=== PATIENT | female | born 1940 | race Two or more races ===

== ENCOUNTER 2023-11-24 06:45 | Inpatient (IN) | payer MEDICARE, OTHER ==
[~2023-11-24] VITALS: Ht 162.6 cm; Wt 58.1 kg
[2023-11-24] MEDS: IV NS 0.9% 500 ML BAG IV ONE (07:12)
[2023-11-24 07:44] LABS: BASOPHILS % (AUTO) 0.3 % (0.0-2.0); EOSINOPHILS # (AUTO) 0.1 K/uL (0.0-0.7); EOSINOPHILS % (AUTO) 0.4 % (0.0-6.0); HEMATOCRIT 53 % (33-45); HEMOGLOBIN 17.6 g/dL (11.5-14.8); LYMPHOCYTES # (AUTO) 1.5 K/uL (0.8-4.8); LYMPHOCYTES % (AUTO) 10.3 % (20.0-44.0); MEAN CORPUSCULAR HEMOGLOBIN 32 PG (26.0-33.0); MEAN CORPUSCULAR HGB CONC 33 g/dl (31.0-36.0); MEAN CORPUSCULAR VOLUME 97 fL (82-100); MONOCYTES # (AUTO) 1.5 K/uL (0.1-1.30); MONOCYTES % (AUTO) 9.7 % (2.0-12.0); NEUTROPHILS # (AUTO) 11.9 K/uL (1.8-8.9); NEUTROPHILS % (AUTO) 79.3 % (43.0-81.0); PLATELET COUNT (AUTO) 159 K/uL (150-450); RED BLOOD CELL COUNT(AUTO) 5.48 MIL/uL (4.0-5.2); RED CELL DISTRIBUTION WIDTH 18.7 % (11.5-15.0)
[2023-11-24 07:57] LABS: ALANINE AMINOTRANSFERASE 79 U/L (12-78); ALBUMIN 1.9 g/dL (3.4-5.0); ALKALINE PHOSPHATASE 331 U/L (46-116); ASPARTATE AMINOTRANSFERASE 98 U/L (15-37); BILIRUBIN,DIRECT 3.4 mg/dL (0.0-0.2); BILIRUBIN,TOTAL 5.9 mg/dL (0.2-1.0); CALCIUM, SERUM 9.9 mg/dL (8.5-10.1); CARBON DIOXIDE 21 mmol/L (21-32); CHLORIDE 98 mmol/L (98-107); CREATININE 1.4 mg/dL (0.6-1.3); GLUCOSE 100 mg/dL (74-106); LIPASE 142 U/L (16-77); SODIUM SERUM 128 mmol/L (136-145); UREA NITROGEN, BLOOD 35 mg/dL (7-18)
[2023-11-24 07:59] LABS: POTASSIUM 6.4 mmol/L (3.5-5.1)
[2023-11-24] MEDS: SODIUM BICARBONATE SYR 100 MEQ in IV D5W 1,000 ML IV ONE (08:30)
[2023-11-24] MEDS ORDERED: CALCIUM CHLORIDE 1,000 MG/10 ML DISP.SYRIN ONE (09:01)
[2023-11-24] MEDS ORDERED: DEXTROSE 50%-WATER 50 ML DISP.SYRIN ONE (09:01)
[2023-11-24] MEDS ORDERED: FUROSEMIDE 40 MG/4 ML VIAL ONE (09:01)
[2023-11-24] MEDS ORDERED: INSULIN REGULAR, HUMAN 100 UNIT/ML 10 ML VIAL ONE (09:02)
[2023-11-24] MEDS: CALCIUM CHLORIDE 1,000 MG/10 ML DISP.SYRIN IV ONE (09:03)
[2023-11-24] MEDS: DEXTROSE 50%-WATER 50 ML DISP.SYRIN IV ONE (09:04)
[2023-11-24] MEDS: INSULIN REGULAR, HUMAN 100 UNIT/ML 10 ML VIAL IV ONE (09:06)
[2023-11-24] MEDS: FUROSEMIDE 40 MG/4 ML VIAL IV ONE (09:08)
[2023-11-24] MEDS: ALBUTEROL FS 2.5 MG/3 ML VIAL.NEB NEB ONE (09:29)
[2023-11-24] MEDS ORDERED: FAMO40TA70 PO (09:35)
[2023-11-24] MEDS ORDERED: CLON0.5T PO (09:35)
[2023-11-24] MEDS ORDERED: ALBUTEROL FS 2.5 MG/3 ML VIAL.NEB ONE (09:35)
[2023-11-24] MEDS ORDERED: PROC5TAB59 PO (09:35)
[2023-11-24] MEDS ORDERED: HYDR-4303 PO (09:35)
[2023-11-24 09:42] VITALS: O2SAT 98
[2023-11-24 10:27] VITALS: O2SAT 99
[2023-11-24 11:02] LABS: APPEARANCE,URINE CLEAR (CLEAR); BILIRUBIN,URINE 1+ (NEGATIVE); BLOOD, URINE TRACE-INTA Ery/uL (NEGATIVE); COLOR,URINE YELLOW (YELLOW); KETONES,URINE NEGATIVE (NEGATIVE); LEUKOCYTE ESTERASE ,URINE NEGATIVE (NEGATIVE); NITRITE, URINE POSITIVE (NEGATIVE); PH,URINE 5.5 (5.0-8.0); PROTEIN,URINE NEGATIVE (NEGATIVE); UGLUCOSE NEGATIVE (NEGATIVE)
[2023-11-24 11:08] LABS: CREATININE, URINE 130.2 MG/DL (30.0-125.0); URINE TOTAL PROTEIN 15.5 mg/dL (0-11.9)
[2023-11-24 11:11] LABS: URINE SODIUM, RANDOM < 5 mmol/l (40-220)
[2023-11-24 11:39] LABS: RBC,URINE 0-2 /HPF (0-2)
[2023-11-24 11:40] LABS: ADD URINE CULTURE YES; BACTERIA,URINE 1+ /HPF (None Seen); SQUAMOUS EPITHELIAL CELL,UR Few /HPF (None Seen)
[2023-11-24] MEDS: CEFTRIAXONE 1 G in IV D5W 50 ML IV STA (11:43)
[2023-11-24 12:09] LABS: EOSINOPHIL,URINE None Seen
[2023-11-24] MEDS ORDERED: CEFTRIAXONE 1GM BAG (ER ONLY) 50 ML IV ONE (12:55)
[2023-11-24] MEDS ORDERED: ACETAMINOPHEN 325 MG TABLET PO PRN (13:00)
[2023-11-24] MEDS ORDERED: Z GUARD REMEDY 4 OZ OINT TP PRN (13:00)
[2023-11-24] MEDS ORDERED: IV NS 0.9% 1,000 ML IV PRN (13:00)
[2023-11-24] MEDS ORDERED: MORPHINE SULFATE INJ 2 MG/ML DISP.SYRIN IV PRN (13:00)
[2023-11-24 13:18] LABS: CALCIUM, SERUM 10.7 mg/dL (8.5-10.1); CARBON DIOXIDE 14 mmol/L (21-32); CHLORIDE 100 mmol/L (98-107); CREATININE 1.4 mg/dL (0.6-1.3); GLUCOSE 129 mg/dL (74-106); SODIUM SERUM 130 mmol/L (136-145); UREA NITROGEN, BLOOD 36 mg/dL (7-18)
[2023-11-24 14:00] VITALS: BP 102/75; TEMP 98.4; O2SAT 99
[2023-11-24] MEDS: CEFEPIME 1 GM in IV D5W 50 ML IV SCH (15:13)
[2023-11-24] MEDS: Sodium Bicarbonate 150 MEQ in IV D5W 1,000 ML IV SCH (15:24)
[2023-11-24 16:00] VITALS: BP 104/74; TEMP 97.4; O2SAT 97
[2023-11-24 20:00] VITALS: BP 121/75; TEMP 97.5; O2SAT 97
[2023-11-24] MEDS: clonazePAM 0.5 MG TABLET PO PRN (20:41)
[2023-11-24] MEDS: ONDANSETRON HCL/PF 4 MG/2 ML VIAL IVP PRN (20:42)
[2023-11-24 20:57] LABS: INR 1.31 (0.91-1.10); PROTHROMBIN TIME 13.6 SECS (9.2-11.1)
[2023-11-24 21:04] LABS: D-DIMER 16.52 mg/L(FEU (0.17-0.50)
[2023-11-25] VITALS: BP 106/61; TEMP 97.7; O2SAT 96
[2023-11-25 05:01] VITALS: BP 106/52; TEMP 97.9; O2SAT 95
[2023-11-25 07:00] VITALS: BP 86/54; TEMP 97.7; O2SAT 100
[2023-11-25 07:51] LABS: BASOPHILS % (AUTO) 0.1 % (0.0-2.0); EOSINOPHILS # (AUTO) 0.3 K/uL (0.0-0.7); HEMATOCRIT 51 % (33-45); HEMOGLOBIN 17.4 g/dL (11.5-14.8); LYMPHOCYTES # (AUTO) 1.1 K/uL (0.8-4.8); LYMPHOCYTES % (AUTO) 7.6 % (20.0-44.0); MEAN CORPUSCULAR HEMOGLOBIN 33 PG (26.0-33.0); MEAN CORPUSCULAR HGB CONC 34 g/dl (31.0-36.0); MEAN CORPUSCULAR VOLUME 96 fL (82-100); MONOCYTES % (AUTO) 7.3 % (2.0-12.0); NEUTROPHILS # (AUTO) 11.7 K/uL (1.8-8.9); PLATELET COUNT (AUTO) 123 K/uL (150-450); RED BLOOD CELL COUNT(AUTO) 5.29 MIL/uL (4.0-5.2); RED CELL DISTRIBUTION WIDTH 18.5 % (11.5-15.0); WHITE BLOOD COUNT (AUTO) 14.1 K/uL (4.3-11.0)
[2023-11-25 08:06] LABS: INR 1.33 (0.91-1.10); PARTIAL THROMBOPLASTIN TIME 30.8 SEC (24.3-34.3); PROTHROMBIN TIME 13.8 SECS (9.2-11.1)
[2023-11-25 08:24] LABS: D-DIMER 18.26 mg/L(FEU (0.17-0.50)
[2023-11-25 08:42] LABS: ALBUMIN 1.7 g/dL (3.4-5.0); BILIRUBIN,TOTAL 5.9 mg/dL (0.2-1.0); CALCIUM, SERUM 10.3 mg/dL (8.5-10.1); CREATININE 1.3 mg/dL (0.6-1.3); MAGNESIUM 2.6 mg/dL (1.8-2.4); PHOSPHORUS 3.3 mg/dL (2.5-4.9); POTASSIUM 4.9 mmol/L (3.5-5.1); TOTAL PROTEIN, SERUM 5.8 g/dL (6.4-8.2)
[2023-11-25] MEDS: FAMOTIDINE (20 MG) 20 MG TABLET PO SCH (08:56)
[2023-11-25 12:00] VITALS: BP_SYST 104; BP_SYST 86; BP_DIAS 54; BP_DIAS 70; TEMP 97.6; TEMP 97.7; O2SAT 100
[2023-11-25] MEDS: Sodium Bicarbonate 150 MEQ in IV D5W 1,000 ML IV SCH (13:34)
[2023-11-25 15:11] LABS: RHEUMATOID FACTOR SCREEN POSITIVE (NEGATIVE)
[2023-11-25] MEDS: HYDROCODONE/APAP 5/325MG TABLET PO PRN (15:11)
[2023-11-25 15:31] LABS: THYROID STIMULATING HORMONE 0.951 uIU/mL (0.358-3.74); URIC ACID 8.9 mg/dL (2.6-7.2)
[2023-11-25 16:05] VITALS: BP 98/64; TEMP 97.6; O2SAT 94
[2023-11-25] MEDS: ALLOPURINOL 100 MG TABLET PO SCH (16:31)
[2023-11-25] MEDS: CALCITONIN,SALMON,SYNTHETIC 3.7 ML SPRAY.PUMP NS SCH (16:32)
[2023-11-25 16:56] LABS: PROTEIN, BODY FLUID 0.7 G/DL
[2023-11-25 19:04] LABS: APPEARANCE,SPUN,BODY FLUID CLEAR (CLEAR)
[2023-11-25 19:05] LABS: MACROPHAGES, BODY FLUID 50; POLYNUCLEAR, BODY FLUID 33 % (0-25); WBC, BODY FLUID 251 /cu. mm. (0-200)
[2023-11-25 20:00] VITALS: BP 100/66; TEMP 97.5; O2SAT 95
[2023-11-26] VITALS: BP 112/79; TEMP 97.5; O2SAT 96
[2023-11-26 05:00] VITALS: BP 106/75; TEMP 98.1; O2SAT 96
[2023-11-26 05:48] LABS: BASOPHILS % (AUTO) 0.3 % (0.0-2.0); EOSINOPHILS # (AUTO) 0.2 K/uL (0.0-0.7); EOSINOPHILS % (AUTO) 1.5 % (0.0-6.0); HEMATOCRIT 48 % (33-45); HEMOGLOBIN 16.3 g/dL (11.5-14.8); LYMPHOCYTES # (AUTO) 1.4 K/uL (0.8-4.8); LYMPHOCYTES % (AUTO) 9.8 % (20.0-44.0); MEAN CORPUSCULAR HEMOGLOBIN 32 PG (26.0-33.0); MEAN CORPUSCULAR HGB CONC 34 g/dl (31.0-36.0); MEAN CORPUSCULAR VOLUME 96 fL (82-100); MONOCYTES # (AUTO) 1.2 K/uL (0.1-1.30); MONOCYTES % (AUTO) 8.6 % (2.0-12.0); NEUTROPHILS # (AUTO) 11.5 K/uL (1.8-8.9); NEUTROPHILS % (AUTO) 79.8 % (43.0-81.0); RED BLOOD CELL COUNT(AUTO) 5.01 MIL/uL (4.0-5.2); RED CELL DISTRIBUTION WIDTH 18.7 % (11.5-15.0); WHITE BLOOD COUNT (AUTO) 14.4 K/uL (4.3-11.0)
[2023-11-26 05:50] LABS: PLATELET COUNT (AUTO) 92 K/uL (150-450)
[2023-11-26 06:06] LABS: CALCIUM, SERUM 9.8 mg/dL (8.5-10.1); CARBON DIOXIDE 28 mmol/L (21-32); CHLORIDE 95 mmol/L (98-107); CREATININE 1.5 mg/dL (0.6-1.3); GLUCOSE 123 mg/dL (74-106); POTASSIUM 4.8 mmol/L (3.5-5.1); SODIUM SERUM 128 mmol/L (136-145); UREA NITROGEN, BLOOD 39 mg/dL (7-18)
[2023-11-26 06:14] LABS: INR 1.45 (0.91-1.10); PARTIAL THROMBOPLASTIN TIME 33.5 SEC (24.3-34.3)
[2023-11-26 06:16] LABS: D-DIMER 23.38 mg/L(FEU (0.17-0.50)
[2023-11-26 07:00] VITALS: BP 98/66; TEMP 97.5; O2SAT 94
[2023-11-26 08:10] LABS: PTH, INTACT 18 pg/mL (15-65)
[2023-11-26 08:10] LABS: VIT D, 25-HYDROXY 13.1 ng/mL (30.0-100.0)
[2023-11-26 08:10] LABS: *ANA ANTI-CENTROMERE B AB <0.2 AI (0.0-0.9); *ANA ANTI-DNA(DS) AB, QN <1 IU/mL (0-9); *ANA ANTI-JO-1 <0.2 AI (0.0-0.9); *ANA ANTICHROMATIN ANTIBODY <0.2 AI (0.0-0.9); *ANA RNP ANTIBODIES <0.2 AI (0.0-0.9); *ANA SJOGREN'S ANTI-SS-A <0.2 AI (0.0-0.9); *ANA SJOGREN'S ANTI-SS-B <0.2 AI (0.0-0.9); *ANAANTI-SCLERODERMA-70 AB <0.2 AI (0.0-0.9); *ANASMITH AB <0.2 AI (0.0-0.9); FOLIC ACID 6.4 ng/mL (>3.0); HEPATITIS B SURFACE AB Non Reactive (.); IMMUNOGLOBULIN A, SERUM 559 mg/dL (64-422); IMMUNOGLOBULIN G, SERUM 1246 mg/dL (586-1602); IMMUNOGLOBULIN M, SERUM 170 mg/dL (26-217)
[2023-11-26 11:10] LABS: *SPE A/G RATIO 0.6 (0.7-1.7); *SPE ALBUMIN 1.9 g/dL (2.9-4.4); *SPE ALPHA-1-GLOBULIN 0.3 g/dL (0.0-0.4); *SPE ALPHA-2-GLOBULIN 0.7 g/dL (0.4-1.0); *SPE BETA GLOBULIN 0.9 g/dL (0.7-1.3); *SPE GLOBULIN, TOTAL 3.3 g/dL (2.2-3.9); *SPE M-SPIKE Not Observed g/dL (Not Observed); *SPE PROTEIN TOTAL 5.2 g/dL (6.0-8.5); *SPEGAMMA GLOBULIN 1.4 g/dL (0.4-1.8)
[2023-11-26 11:50] LABS: ANISOCYTOSIS 1+; BAND % (MANUAL) 1 % (0.0-5.0); BASOPHILS % (MANUAL) 0 % (0.0-2.0); EOSINOPHILS % (MANUAL) 3 % (0-4); LYMPHOCYTES % (MANUAL) 8 % (16-48); MONOCYTES % (MANUAL) 7 % (0-11.0); NEUTROPHILS % (MANUAL) 81 (42-76); OVALOCYTES 1+; PLATELET ESTIMATE DECREASED; TEAR DROP CELLS 1+
[2023-11-26 16:00] VITALS: BP 92/62; TEMP 97.6; O2SAT 96
[2023-11-26] MEDS: MAG HYDROX/AL HYDROX/SIMETH 30 ML UDC PO PRN (16:09)
[2023-11-26] MEDS: FLUCONAZOLE (100 MG) 100 MG TABLET PO SCH (18:23)
[2023-11-26] MEDS: NYSTATIN (PYXIS) 500,000 UNIT/5 ML ORAL.SUSP PO SCH (18:23)
[2023-11-26] MEDS: LIDOCAINE VISCOUS 2% UD 15 ML UDC MM SCH (18:31)
[2023-11-26 20:00] VITALS: BP 118/84; TEMP 98; O2SAT 95
[2023-11-26] MEDS: CEFEPIME 1 GM in IV D5W 50 ML IV SCH (20:15)
[2023-11-27] VITALS: BP 109/68; TEMP 98.2; O2SAT 95
[2023-11-27 04:00] VITALS: BP 107/71; TEMP 98.1; O2SAT 95
[2023-11-27 06:38] LABS: BASOPHILS # (AUTO) 0.1 K/uL (0.0-0.2); BASOPHILS % (AUTO) 0.4 % (0.0-2.0); EOSINOPHILS # (AUTO) 0.2 K/uL (0.0-0.7); EOSINOPHILS % (AUTO) 1.2 % (0.0-6.0); HEMATOCRIT 51 % (33-45); HEMOGLOBIN 16.9 g/dL (11.5-14.8); LYMPHOCYTES # (AUTO) 1.8 K/uL (0.8-4.8); LYMPHOCYTES % (AUTO) 11.9 % (20.0-44.0); MEAN CORPUSCULAR HEMOGLOBIN 32 PG (26.0-33.0); MEAN CORPUSCULAR HGB CONC 33 g/dl (31.0-36.0); MEAN CORPUSCULAR VOLUME 96 fL (82-100); MONOCYTES # (AUTO) 1.3 K/uL (0.1-1.30); MONOCYTES % (AUTO) 8.9 % (2.0-12.0); NEUTROPHILS # (AUTO) 11.7 K/uL (1.8-8.9); NEUTROPHILS % (AUTO) 77.6 % (43.0-81.0); PLATELET COUNT (AUTO) 83 K/uL (150-450); RED BLOOD CELL COUNT(AUTO) 5.26 MIL/uL (4.0-5.2); RED CELL DISTRIBUTION WIDTH 18.7 % (11.5-15.0)
[2023-11-27 06:55] LABS: CALCIUM, SERUM 9.7 mg/dL (8.5-10.1); CARBON DIOXIDE 26 mmol/L (21-32); CHLORIDE 92 mmol/L (98-107); CREATININE 1.5 mg/dL (0.6-1.3); GLUCOSE 119 mg/dL (74-106); POTASSIUM 5.1 mmol/L (3.5-5.1); SODIUM SERUM 127 mmol/L (136-145); UREA NITROGEN, BLOOD 45 mg/dL (7-18)
[2023-11-27 07:22] LABS: ANISOCYTOSIS 1+; BASOPHILS % (MANUAL) 0 % (0.0-2.0); EOSINOPHILS % (MANUAL) 2 % (0-4); HYPOCHROMASIA 1+; LYMPHOCYTES % (MANUAL) 10 % (16-48); MONOCYTES % (MANUAL) 7 % (0-11.0); NEUTROPHILS % (MANUAL) 81 (42-76); OVALOCYTES 1+; PLATELET ESTIMATE DECREASED; TEAR DROP CELLS 1+
[2023-11-27 08:00] VITALS: BP 111/78; TEMP 97.9; O2SAT 93
[2023-11-27 16:06] VITALS: BP 106/71; TEMP 97.9; O2SAT 95
[2023-11-27 20:00] VITALS: BP_SYST 101; BP_DIAS 20; BP_DIAS 70; TEMP 97.2; O2SAT 97
[2023-11-28] VITALS: BP 94/65; TEMP 97.7; O2SAT 97
[2023-11-28 04:00] VITALS: BP 95/65; TEMP 97.8; O2SAT 96
[2023-11-28 07:30] VITALS: BP 95/58; TEMP 97.5; O2SAT 95
[2023-11-28] MEDS: IV NS 0.9% 1,000 ML IV SCH (08:38)
[2023-11-28 20:00] VITALS: BP 101/54; TEMP 97.5; O2SAT 95
[2023-11-29 08:32] VITALS: BP 112/68; TEMP 97.7; O2SAT 96
[2023-11-29] MEDS: CHOLECALCIFEROL (VITAMIN D 3) 400 UNIT TABLET PO SCH (08:53)
[2023-11-29 09:21] LABS: BASOPHILS # (AUTO) 0.1 K/uL (0.0-0.2); BASOPHILS % (AUTO) 0.5 % (0.0-2.0); EOSINOPHILS # (AUTO) 0.1 K/uL (0.0-0.7); EOSINOPHILS % (AUTO) 0.6 % (0.0-6.0); HEMATOCRIT 48 % (33-45); HEMOGLOBIN 16.5 g/dL (11.5-14.8); LYMPHOCYTES % (AUTO) 11.6 % (20.0-44.0); MEAN CORPUSCULAR HEMOGLOBIN 33 PG (26.0-33.0); MEAN CORPUSCULAR HGB CONC 35 g/dl (31.0-36.0); MEAN CORPUSCULAR VOLUME 96 fL (82-100); MONOCYTES # (AUTO) 1.2 K/uL (0.1-1.30); NEUTROPHILS # (AUTO) 13.8 K/uL (1.8-8.9); NEUTROPHILS % (AUTO) 80.3 % (43.0-81.0); PLATELET COUNT (AUTO) 75 K/uL (150-450); RED BLOOD CELL COUNT(AUTO) 4.98 MIL/uL (4.0-5.2); RED CELL DISTRIBUTION WIDTH 19.4 % (11.5-15.0); WHITE BLOOD COUNT (AUTO) 17.2 K/uL (4.3-11.0)
[2023-11-29 09:41] LABS: URIC ACID 7.9 mg/dL (2.6-7.2)
[2023-11-29 09:42] LABS: CALCIUM, SERUM 8.2 mg/dL (8.5-10.1); CARBON DIOXIDE 28 mmol/L (21-32); CHLORIDE 91 mmol/L (98-107); CREATININE 1.6 mg/dL (0.6-1.3); GLUCOSE 84 mg/dL (74-106); POTASSIUM 4.5 mmol/L (3.5-5.1); SODIUM SERUM 129 mmol/L (136-145); UREA NITROGEN, BLOOD 53 mg/dL (7-18)
[2023-11-29 09:46] LABS: ALBUMIN 1.3 g/dL (3.4-5.0)
[2023-11-29 10:51] LABS: ANISOCYTOSIS 1+; LYMPHOCYTES % (MANUAL) 9 % (16-48); MONOCYTES % (MANUAL) 8 % (0-11.0); NEUTROPHILS % (MANUAL) 83 (42-76); OVALOCYTES 1+; PLATELET ESTIMATE DECREASED; TARGET CELLS 1+
[2023-11-29] MEDS: IV NS 0.9% 1,000 ML IV PRN (11:35)
[2023-11-29 12:18] LABS: INR 1.35 (0.91-1.10); PARTIAL THROMBOPLASTIN TIME 32.9 SEC (24.3-34.3)
[2023-11-29 12:20] LABS: D-DIMER 19.82 mg/L(FEU (0.17-0.50)
[2023-11-29 12:29] LABS: BILIRUBIN,DIRECT 4.4 mg/dL (0.0-0.2); BILIRUBIN,TOTAL 6.9 mg/dL (0.2-1.0); TOTAL PROTEIN, SERUM 4.9 g/dL (6.4-8.2)
[2023-11-29 12:37] LABS: ALBUMIN 1.2 g/dL (3.4-5.0)
[2023-11-29] MEDS: VANCOMYCIN HCL 1.25 GM in IV D5W 250 ML IV ONE (15:36)
[2023-11-29 20:00] VITALS: BP 93/65; TEMP 97.7; O2SAT 97
[2023-11-30 07:06] LABS: BASOPHILS # (AUTO) 0.1 K/uL (0.0-0.2); BASOPHILS % (AUTO) 0.4 % (0.0-2.0); EOSINOPHILS # (AUTO) 0.1 K/uL (0.0-0.7); EOSINOPHILS % (AUTO) 0.8 % (0.0-6.0); HEMATOCRIT 51 % (33-45); HEMOGLOBIN 17.3 g/dL (11.5-14.8); LYMPHOCYTES # (AUTO) 1.6 K/uL (0.8-4.8); LYMPHOCYTES % (AUTO) 10.6 % (20.0-44.0); MEAN CORPUSCULAR HEMOGLOBIN 33 PG (26.0-33.0); MEAN CORPUSCULAR HGB CONC 34 g/dl (31.0-36.0); MEAN CORPUSCULAR VOLUME 96 fL (82-100); MONOCYTES % (AUTO) 6.8 % (2.0-12.0); NEUTROPHILS # (AUTO) 12.5 K/uL (1.8-8.9); NEUTROPHILS % (AUTO) 81.4 % (43.0-81.0); PLATELET COUNT (AUTO) 80 K/uL (150-450); RED CELL DISTRIBUTION WIDTH 19.1 % (11.5-15.0); WHITE BLOOD COUNT (AUTO) 15.4 K/uL (4.3-11.0)
[2023-11-30 08:00] VITALS: BP 100/56; TEMP 97.5; O2SAT 94
[2023-11-30] MEDS: CEFEPIME 1 GM in IV D5W 50 ML IV SCH (09:15)
[2023-11-30 09:59] LABS: ANISOCYTOSIS 1+; BASOPHILS % (MANUAL) 0 % (0.0-2.0); EOSINOPHILS % (MANUAL) 0 % (0-4); LYMPHOCYTES % (MANUAL) 9 % (16-48); MONOCYTES % (MANUAL) 4 % (0-11.0); NEUTROPHILS % (MANUAL) 87 (42-76); PLATELET ESTIMATE DECREASED
[2023-11-30 15:01] LABS: CALCIUM, SERUM 7.9 mg/dL (8.5-10.1); CARBON DIOXIDE 25 mmol/L (21-32); CHLORIDE 93 mmol/L (98-107); CREATININE 1.8 mg/dL (0.6-1.3); GLUCOSE 104 mg/dL (74-106); POTASSIUM 4.5 mmol/L (3.5-5.1); SODIUM SERUM 128 mmol/L (136-145); UREA NITROGEN, BLOOD 59 mg/dL (7-18)
[2023-11-30 16:00] VITALS: BP 104/54; TEMP 97.4; O2SAT 96
[2023-11-30 16:05] LABS: HIV-1 p24 ANTIGEN NON REACTIVE (NONREACTIVE); HIV-1/2 ANTIBODY NON REACTIVE (NONREACTIVE)
[2023-11-30 20:00] VITALS: BP 96/64; TEMP 97.8; O2SAT 97
[2023-12-01] MEDS: VANCOMYCIN 1 GM in IV D5W 250 ML IV SCH (02:06)
[2023-12-01 07:09] LABS: CALCIUM, SERUM 8.4 mg/dL (8.5-10.1); CARBON DIOXIDE 25 mmol/L (21-32); CHLORIDE 92 mmol/L (98-107); GLUCOSE 105 mg/dL (74-106); MAGNESIUM 2.5 mg/dL (1.8-2.4); PHOSPHORUS 4.4 mg/dL (2.5-4.9); POTASSIUM 4.7 mmol/L (3.5-5.1); SODIUM SERUM 127 mmol/L (136-145); UREA NITROGEN, BLOOD 69 mg/dL (7-18)
[2023-12-01 07:12] LABS: BASOPHILS % (AUTO) 0.3 % (0.0-2.0); EOSINOPHILS # (AUTO) 0.1 K/uL (0.0-0.7); EOSINOPHILS % (AUTO) 0.4 % (0.0-6.0); HEMATOCRIT 50 % (33-45); HEMOGLOBIN 16.7 g/dL (11.5-14.8); LYMPHOCYTES # (AUTO) 1.9 K/uL (0.8-4.8); LYMPHOCYTES % (AUTO) 11.3 % (20.0-44.0); MEAN CORPUSCULAR HEMOGLOBIN 32 PG (26.0-33.0); MEAN CORPUSCULAR HGB CONC 34 g/dl (31.0-36.0); MEAN CORPUSCULAR VOLUME 97 fL (82-100); MONOCYTES # (AUTO) 0.9 K/uL (0.1-1.30); MONOCYTES % (AUTO) 5.3 % (2.0-12.0); NEUTROPHILS # (AUTO) 13.6 K/uL (1.8-8.9); NEUTROPHILS % (AUTO) 82.7 % (43.0-81.0); PLATELET COUNT (AUTO) 96 K/uL (150-450); RED BLOOD CELL COUNT(AUTO) 5.16 MIL/uL (4.0-5.2); RED CELL DISTRIBUTION WIDTH 19.3 % (11.5-15.0); WHITE BLOOD COUNT (AUTO) 16.5 K/uL (4.3-11.0)
[2023-12-01 07:23] LABS: ALBUMIN 1.4 g/dL (3.4-5.0)
[2023-12-01 08:00] VITALS: BP 85/56; TEMP 97.3; O2SAT 95
[2023-12-01 08:37] LABS: URIC ACID 7.5 mg/dL (2.6-7.2)
[2023-12-01 10:32] LABS: ANISOCYTOSIS 1+; BASOPHILS % (MANUAL) 0 % (0.0-2.0); EOSINOPHILS % (MANUAL) 0 % (0-4); LYMPHOCYTES % (MANUAL) 9 % (16-48); MONOCYTES % (MANUAL) 6 % (0-11.0); NEUTROPHILS % (MANUAL) 85 (42-76); PLATELET ESTIMATE DECREASED
[2023-12-01] MEDS: ALBUMIN 25% 25 GM in PREMIX 1 EA IV SCH (11:29)
[2023-12-01 16:19] VITALS: BP 101/59; TEMP 98.1; O2SAT 98
[2023-12-01] MEDS: MAGNESIUM HYDROXIDE 30 ML UDC PO PRN (16:52)
[2023-12-01] MEDS: DOCUSATE SODIUM 100 MG CAPSULE PO SCH (17:01)
[2023-12-01] MEDS: SENNOSIDES 8.6 MG TABLET PO SCH (22:00)
[2023-12-02 06:53] LABS: BASOPHILS # (AUTO) 0.1 K/uL (0.0-0.2); BASOPHILS % (AUTO) 0.3 % (0.0-2.0); EOSINOPHILS # (AUTO) 0.2 K/uL (0.0-0.7); EOSINOPHILS % (AUTO) 1.3 % (0.0-6.0); HEMATOCRIT 37 % (33-45); HEMOGLOBIN 12.5 g/dL (11.5-14.8); LYMPHOCYTES # (AUTO) 1.6 K/uL (0.8-4.8); LYMPHOCYTES % (AUTO) 10.8 % (20.0-44.0); MEAN CORPUSCULAR HEMOGLOBIN 33 PG (26.0-33.0); MEAN CORPUSCULAR HGB CONC 34 g/dl (31.0-36.0); MEAN CORPUSCULAR VOLUME 96 fL (82-100); MONOCYTES # (AUTO) 0.9 K/uL (0.1-1.30); MONOCYTES % (AUTO) 5.9 % (2.0-12.0); NEUTROPHILS # (AUTO) 11.9 K/uL (1.8-8.9); NEUTROPHILS % (AUTO) 81.7 % (43.0-81.0); PLATELET COUNT (AUTO) 63 K/uL (150-450); RED BLOOD CELL COUNT(AUTO) 3.81 MIL/uL (4.0-5.2); RED CELL DISTRIBUTION WIDTH 19.2 % (11.5-15.0); WHITE BLOOD COUNT (AUTO) 14.6 K/uL (4.3-11.0)
[2023-12-02 07:02] LABS: CALCIUM, SERUM 8.4 mg/dL (8.5-10.1); CARBON DIOXIDE 25 mmol/L (21-32); CHLORIDE 94 mmol/L (98-107); CREATININE 2.2 mg/dL (0.6-1.3); GLUCOSE 76 mg/dL (74-106); MAGNESIUM 2.7 mg/dL (1.8-2.4); PHOSPHORUS 4.2 mg/dL (2.5-4.9); POTASSIUM 4.6 mmol/L (3.5-5.1); SODIUM SERUM 129 mmol/L (136-145)
[2023-12-02 07:04] LABS: UREA NITROGEN, BLOOD 80 mg/dL (7-18)
[2023-12-02 08:47] LABS: EOSINOPHILS % (MANUAL) 2 % (0-4); LYMPHOCYTES % (MANUAL) 11 % (16-48); MONOCYTES % (MANUAL) 6 % (0-11.0); NEUTROPHILS % (MANUAL) 81 (42-76)
[2023-12-02 08:48] LABS: ANISOCYTOSIS 1+; PLATELET ESTIMATE DECREASED
[2023-12-02] MEDS: BISACODYL SUPP (10 MG) 10 MG/SUPP.RECT SUPP.RECT RC ONE (08:51)
[2023-12-02 08:56] VITALS: BP 95/50; TEMP 98.2; O2SAT 98
[2023-12-02] MEDS: MIDODRINE HCL (5MG) 5 MG TABLET PO SCH (09:05)
[2023-12-02] MEDS: OCTREOTIDE 50 MCG/ML AMPUL SQ SCH (10:54)
[2023-12-02] MEDS ORDERED: LACTULOSE 10 G/15 ML UDC (PYXIS) PO PRN (12:00)
[2023-12-02 18:04] VITALS: BP 110/58; TEMP 97.9; O2SAT 96
[2023-12-02 20:00] VITALS: BP 110/63; TEMP 97.5; O2SAT 95; O2SAT 96
[2023-12-03] MEDS ORDERED: VANCOMYCIN 1 GM in IV D5W 250 ML IV SCH (02:00)
[2023-12-03 07:10] LABS: BASOPHILS # (AUTO) 0.1 K/uL (0.0-0.2); BASOPHILS % (AUTO) 0.6 % (0.0-2.0); EOSINOPHILS # (AUTO) 0.1 K/uL (0.0-0.7); EOSINOPHILS % (AUTO) 0.9 % (0.0-6.0); HEMATOCRIT 45 % (33-45); HEMOGLOBIN 15.4 g/dL (11.5-14.8); LYMPHOCYTES # (AUTO) 1.4 K/uL (0.8-4.8); LYMPHOCYTES % (AUTO) 8.7 % (20.0-44.0); MEAN CORPUSCULAR HEMOGLOBIN 33 PG (26.0-33.0); MEAN CORPUSCULAR HGB CONC 34 g/dl (31.0-36.0); MEAN CORPUSCULAR VOLUME 97 fL (82-100); MONOCYTES # (AUTO) 0.7 K/uL (0.1-1.30); MONOCYTES % (AUTO) 4.4 % (2.0-12.0); NEUTROPHILS # (AUTO) 13.5 K/uL (1.8-8.9); NEUTROPHILS % (AUTO) 85.4 % (43.0-81.0); PLATELET COUNT (AUTO) 76 K/uL (150-450); RED BLOOD CELL COUNT(AUTO) 4.68 MIL/uL (4.0-5.2); RED CELL DISTRIBUTION WIDTH 19.2 % (11.5-15.0); WHITE BLOOD COUNT (AUTO) 15.8 K/uL (4.3-11.0)
[2023-12-03 07:43] LABS: ALBUMIN 2.3 g/dL (3.4-5.0); BILIRUBIN,DIRECT 5.4 mg/dL (0.0-0.2); BILIRUBIN,TOTAL 8.9 mg/dL (0.2-1.0); TOTAL PROTEIN, SERUM 5.2 g/dL (6.4-8.2)
[2023-12-03 07:57] LABS: CALCIUM, SERUM 8.9 mg/dL (8.5-10.1); CARBON DIOXIDE 24 mmol/L (21-32); CHLORIDE 94 mmol/L (98-107); CREATININE 2.4 mg/dL (0.6-1.3); GLUCOSE 94 mg/dL (74-106); POTASSIUM 5.1 mmol/L (3.5-5.1); SODIUM SERUM 130 mmol/L (136-145)
[2023-12-03 08:08] LABS: UREA NITROGEN, BLOOD 88 mg/dL (7-18)
[2023-12-03 08:33] VITALS: BP 90/54; TEMP 97.5; O2SAT 95
[2023-12-03 08:49] LABS: URIC ACID 7.9 mg/dL (2.6-7.2)
[2023-12-03 12:02] LABS: BASOPHILS % (MANUAL) 0 % (0.0-2.0); EOSINOPHILS % (MANUAL) 2 % (0-4); LYMPHOCYTES % (MANUAL) 9 % (16-48); MONOCYTES % (MANUAL) 7 % (0-11.0); NEUTROPHILS % (MANUAL) 82 (42-76); PLATELET ESTIMATE DECREASED
[2023-12-03 12:31] VITALS: BP 92/55
[2023-12-03] MEDS ORDERED: ALLO100T25 PO (12:42)
[2023-12-03] MEDS ORDERED: DOCU100C36 PO (12:42)
[2023-12-03] MEDS ORDERED: MIDO5TAB4 PO (12:42)
[2023-12-03] MEDS ORDERED: FOLIC ACID 1 MG TABLET PO SCH (15:30)
== END 2023-12-03 15:37 | disposition hospice, home (50) | DRG 435 ==
LOC: ER 07:02 → TELE 09:29 → MED 11-28 11:56
PROVIDERS: ADMIT Internal Medicine; ATTEND Nurse Practitioner Acute Care
DX: C78.7 Secondary malignant neoplasm of liver and intrahepatic bile duct (principal); K76.7 Hepatorenal syndrome; N17.0 Acute kidney failure with tubular necrosis; C78.6 Secondary malignant neoplasm of retroperitoneum and peritoneum; N39.0 Urinary tract infection, site not specified; K76.6 Portal hypertension; R18.8 Other ascites; E44.0 Moderate protein-calorie malnutrition; E87.1 Hypo-osmolality and hyponatremia; B37.0 Candidal stomatitis; D61.818 Other pancytopenia; F03.93 Unspecified dementia, unspecified severity, with mood disturbance; K80.20 Calculus of gallbladder without cholecystitis without obstruction; D69.6 Thrombocytopenia, unspecified; C50.919 Malignant neoplasm of unspecified site of unspecified female breast; D75.1 Secondary polycythemia; E78.5 Hyperlipidemia, unspecified; E83.52 Hypercalcemia; E86.0 Dehydration; E86.1 Hypovolemia; E87.5 Hyperkalemia; E88.09 Other disorders of plasma-protein metabolism, not elsewhere classified; F32.A Depression, unspecified; I10 Essential (primary) hypertension; Z85.3 Personal history of malignant neoplasm of breast; K21.9 Gastro-esophageal reflux disease without esophagitis; F03.90 Unspecified dementia, unspecified severity, without behavioral disturbance, psychotic disturbance, mood disturbance, and anxiety; N18.9 Chronic kidney disease, unspecified; I12.9 Hypertensive chronic kidney disease with stage 1 through stage 4 chronic kidney disease, or unspecified chronic kidney disease; Z17.0 Estrogen receptor positive status [ER+]; Z68.22 Body mass index [BMI] 22.0-22.9, adult
CPT/HCPCS: 36415; 71250-TC; 76700-TC; 80048-TC; 80053-TC; 80076-TC; 81001; 82040-TC; 82105; 82140-TC; 82247-TC; 82248-TC; 82306; 82378; 82550-TC; 82570-TC; 82607-TC; 82784; 83690-TC; 83735-TC; 83970; 84100-TC; 84155; 84165; 84300-TC; 84443-TC; 84550-TC; 85025-TC; 85396; 86225; 86235; 86300; 86301; 86334; 86431-TC; 86706; 86803; 87040-TC; 87081-TC; 87086-TC; 87340; 87806; 88108-TC; 88305-TC; 88312-TC; 89051-TC; 92526; 92611-TC; 94799-TC; 97110-TC; 97116-TC; 97530-TC; A4216; A4223; A6253; A6403; G0378; J0692; J0696; J1815; J1940; J2354; J2405; J3370; J3490; J7030; J7040; J7050; J7060; J7070; P9047